=== PATIENT | male | born 1975 | race Caucasian/White ===

== ENCOUNTER → 2021-05-06 | Emergency (ER) | payer BC, OTHER ==
[~2021-05-06] VITALS: Ht 182.9 cm; Wt 95.7 kg
[~2021-05-06] MED LIST: CEPH500T PO
[2021-05-06 21:24] VITALS: BP 152/89
== END | disposition home or self-care (01) ==
LOC: ER 21:20
DX: L03.317 Cellulitis of buttock (principal)